=== PATIENT | female | born 1960 | race African-American/Black ===

== ENCOUNTER 2016-08-09 11:04 | Inpatient (IN) | payer MEDICARE, MEDICAID ==
[~2016-08-09] VITALS: Ht 165.1 cm; Wt 110.9 kg
[~2016-08-09 11:04] MED LIST: ASCO500 PO; FERR-89 PO; LISI-661 PO; OMEG10005 PO; TURM500C7 PO; [UNRECOGNIZED DRUG - CODE] PO
[2016-08-09] MEDS ORDERED: LORazepam 2 MG TABLET PO ONE (12:45)
[2016-08-09] MEDS ORDERED: HALOPERIDOL 5 MG TABLET PO PRN (13:00)
[2016-08-09] MEDS ORDERED: LORazepam 2 MG TABLET PO PRN (13:00)
[2016-08-09] MEDS ORDERED: ZOLPIDEM TARTRATE 10 MG TABLET PO PRN (13:00)
[2016-08-09 13:15] LABS: BASOPHILS % (AUTO) 0.3 % (0.0-2.0); EOSINOPHILS % (AUTO) 1.5 % (1.0-6.0); HEMATOCRIT 41.9 % (36-46); HEMOGLOBIN 13.3 g/dL (12.0-16.0); LYMPHOCYTES # (AUTO) 2.5 K/uL (1.0-4.8); LYMPHOCYTES % (AUTO) 20.6 % (22.0-44.0); MEAN CORPUSCULAR HEMOGLOBIN 27.1 pg (26.0-34.0); MEAN CORPUSCULAR HGB CONC 31.8 G/dL (31.0-37.0); MEAN CORPUSCULAR VOLUME 85 fL (80-100); MONOCYTES # (AUTO) 1.3 K/uL (0.1-1.0); MONOCYTES % (AUTO) 10.7 % (2.0-9.0); NEUTROPHILS % (AUTO) 66.9 % (40.0-70.0); PLATELET COUNT (AUTO) 216 K/uL (150-450); RBC MORPHOLOGY COMMENT NORMAL RBC MORPH; RED BLOOD CELL COUNT(AUTO) 4.91 MIL/uL (4.00-5.20); RED CELL DISTRIBUTION WIDTH 14.4 % (11.5-14.5)
[2016-08-09 13:21] LABS: ANION GAP 9 mmol/L (8-16); CARBON DIOXIDE 28 mmol/L (22-29); CHLORIDE 100 mmol/L (98-107); GLOMERULAR FILTR. RATE CALC > 60 mL/min (>60); POTASSIUM 3.1 mmol/L (3.5-5.1); SODIUM SERUM 137 mmol/L (136-145); UREA NITROGEN, BLOOD 14 mg/dL (7-18)
[2016-08-09 13:28] LABS: ALANINE AMINOTRANSFERASE 20 U/L (12-78); ALBUMIN 3.3 g/dL (3.4-5.0); ASPARTATE AMINOTRANSFERASE 19 U/L (15-37); BILIRUBIN,TOTAL 0.3 mg/dL (0.1-1.0); TOTAL PROTEIN, SERUM 7.5 g/dL (6.4-8.2)
[2016-08-09] MEDS ORDERED: ALBUTEROL SULFATE 2.5 MG/0.5 ML NEB SOLUTION NEB ONE (14:45)
[2016-08-09] MEDS ORDERED: 0.9% SODIUM CHLORIDE 5 ML NEB SOLUTION NEB ONE (15:04)
[2016-08-09] MEDS ORDERED: ALBUTEROL SULFATE 2.5 MG/0.5 ML NEB SOLUTION NEB PRN (17:30)
[2016-08-09] MEDS ORDERED: POTASSIUM CHLORIDE 20 MEQ ER TABLET PO ONE (17:30)
[2016-08-09 17:39] VITALS: BP 152/99
[2016-08-09] MEDS ORDERED: ACETAMINOPHEN 325 MG TABLET PO PRN (18:15)
[2016-08-09] MEDS ORDERED: IBUPROFEN 400 MG TABLET PO PRN (18:15)
[2016-08-09] MEDS: GuaiFENesin/D-METHORPHAN/PHENYLEPH 5 ML LIQUID ORAL.SYG PO PRN (18:41)
[2016-08-10 03:00] VITALS: BP 138/92
[2016-08-10] MEDS: GuaiFENesin/D-METHORPHAN/PHENYLEPH 5 ML LIQUID ORAL.SYG PO PRN (04:27)
[2016-08-10] MEDS: PANTOPRAZOLE SODIUM 40 MG DR TABLET PO SCH (08:43)
[2016-08-10] MEDS: NICOTINE 7 MG/24 HOUR PATCH TD SCH (08:43)
[2016-08-10] MEDS: LISINOPRIL 10 MG TABLET PO SCH (08:43)
[2016-08-10 09:30] VITALS: BP 156/98
[2016-08-10] MEDS ORDERED: 0.9% SODIUM CHLORIDE 5 ML NEB SOLUTION NEB ONE (11:43)
[2016-08-10] MEDS ORDERED: OxyCODONE HCL/ACETAMINOPHEN 5-325 MG TABLET PO PRN (13:15)
[2016-08-10] MEDS: ESCITALOPRAM OXALATE 10 MG TABLET PO SCH (13:18)
[2016-08-10] MEDS: BENZOCAINE/MENTHOL LOZENGE [8 LOZENGES/PACKET] PO PRN (13:48)
[2016-08-10] MEDS: QUEtiapine FUMARATE 25 MG TABLET PO SCH (16:12)
[2016-08-10 16:55] VITALS: BP 123/76
[2016-08-10] MEDS ORDERED: IBUPROFEN 400 MG TABLET PO PRN (17:15)
[2016-08-10] MEDS ORDERED: ACETAMINOPHEN 325 MG TABLET PO PRN (17:15)
[2016-08-11] MEDS: FERROUS SULFATE 325 MG EC TABLET PO SCH (06:58)
[2016-08-11] MEDS: BENZOCAINE/MENTHOL LOZENGE [8 LOZENGES/PACKET] PO PRN (07:00)
[2016-08-11 07:16] LABS: CHOL/HDL RATIO 2.4 (3.9-5.7); THYROID STIMULATING HORMONE 0.68 uIU/mL (0.36-3.74)
[2016-08-11 07:48] LABS: HEMOGLOBIN A1C 6.1 % (4.5-6.2)
[2016-08-11] MEDS: NICOTINE 7 MG/24 HOUR PATCH TD SCH (08:12)
[2016-08-11] MEDS: FISH OIL/OMEGA-3 FATTY ACIDS 500 MG CAPSULE PO SCH (08:12)
[2016-08-11] MEDS: ESCITALOPRAM OXALATE 10 MG TABLET PO SCH (08:13)
[2016-08-11] MEDS: LISINOPRIL 10 MG TABLET PO SCH (08:13)
[2016-08-11] MEDS: QUEtiapine FUMARATE 25 MG TABLET PO SCH ×2 (08:13→20:55)
[2016-08-11] MEDS: ASCORBIC ACID 500 MG TABLET PO SCH (08:13)
[2016-08-11] MEDS: GuaiFENesin/D-METHORPHAN/PHENYLEPH 5 ML LIQUID ORAL.SYG PO PRN (08:14)
[2016-08-11] MEDS: PANTOPRAZOLE SODIUM 40 MG DR TABLET PO SCH (08:15)
[2016-08-11 09:00] VITALS: BP 160/103
[2016-08-11] MEDS ORDERED: [UNRECOGNIZED DRUG - OTHER] PO SCH ×2 (09:00)
[2016-08-11] MEDS ORDERED: LISINOPRIL 10 MG TABLET PO SCH (09:00)
[2016-08-11 17:00] VITALS: BP 136/88
[2016-08-12 06:13] VITALS: BP 141/79
[2016-08-12] MEDS: FERROUS SULFATE 325 MG EC TABLET PO SCH (06:19)
[2016-08-12 08:30] VITALS: BP 153/97
[2016-08-12] MEDS: QUEtiapine FUMARATE 25 MG TABLET PO SCH ×2 (08:59→16:14)
[2016-08-12] MEDS: PANTOPRAZOLE SODIUM 40 MG DR TABLET PO SCH (08:59)
[2016-08-12] MEDS: ASCORBIC ACID 500 MG TABLET PO SCH (08:59)
[2016-08-12] MEDS: ESCITALOPRAM OXALATE 10 MG TABLET PO SCH (08:59)
[2016-08-12] MEDS: LISINOPRIL 10 MG TABLET PO SCH (08:59)
[2016-08-12] MEDS: FISH OIL/OMEGA-3 FATTY ACIDS 500 MG CAPSULE PO SCH (08:59)
[2016-08-12] MEDS: NICOTINE 7 MG/24 HOUR PATCH TD SCH (09:01)
[2016-08-12 09:02] LABS: GLUCOSE, URINE (UA) NEGATIVE (NEGATIVE); KETONES,URINE NEGATIVE (NEGATIVE); LEUKOCYTE ESTERASE ,URINE SMALL (NEGATIVE); OCCULT BLOOD,URINE NEGATIVE (NEGATIVE); PROTEIN,URINE NEGATIVE (NEGATIVE)
[2016-08-12 11:09] LABS: ADD UA MICROSCOPIC YES; APPEARANCE,URINE SLIGHTLY CLOUDY (CLEAR); RBC,URINE None Seen /HPF (0-2); SQUAMOUS EPITHELIAL CELL,UR Few /LPF (None Seen)
[2016-08-12] MEDS: GuaiFENesin/D-METHORPHAN/PHENYLEPH 5 ML LIQUID ORAL.SYG PO PRN (16:14)
[2016-08-12 17:00] VITALS: BP 144/83
[2016-08-12] MEDS: CIPROFLOXACIN HCL 0.3% 2.5 ML OPHTHALMIC SOLUTION OU SCH (21:33)
[2016-08-13] MEDS: ALBUTEROL SULFATE HFA 90 MCG/PUFF 8 GM INHALER IH PRN (01:54)
[2016-08-13] MEDS ORDERED: 0.9% SODIUM CHLORIDE 5 ML NEB SOLUTION NEB ONE (02:04)
[2016-08-13] MEDS: FERROUS SULFATE 325 MG EC TABLET PO SCH (07:24)
[2016-08-13] MEDS: ESCITALOPRAM OXALATE 10 MG TABLET PO SCH (07:58)
[2016-08-13] MEDS: PANTOPRAZOLE SODIUM 40 MG DR TABLET PO SCH (07:58)
[2016-08-13] MEDS: QUEtiapine FUMARATE 25 MG TABLET PO SCH ×2 (07:58→17:09)
[2016-08-13] MEDS: NICOTINE 7 MG/24 HOUR PATCH TD SCH (07:58)
[2016-08-13] MEDS: FISH OIL/OMEGA-3 FATTY ACIDS 500 MG CAPSULE PO SCH (07:58)
[2016-08-13] MEDS: ASCORBIC ACID 500 MG TABLET PO SCH (07:58)
[2016-08-13] MEDS: LISINOPRIL 10 MG TABLET PO SCH (07:58)
[2016-08-13] MEDS: CIPROFLOXACIN HCL 0.3% 2.5 ML OPHTHALMIC SOLUTION OU SCH ×2 (07:59→20:16)
[2016-08-13] MEDS: GuaiFENesin/D-METHORPHAN/PHENYLEPH 5 ML LIQUID ORAL.SYG PO PRN (08:04)
[2016-08-13 08:30] VITALS: BP 158/88
[2016-08-13] MEDS: AmLODIPine BESYLATE 5 MG TABLET PO SCH (16:15)
[2016-08-13 20:50] VITALS: BP 112/71
[2016-08-14] MEDS: ALBUTEROL SULFATE HFA 90 MCG/PUFF 8 GM INHALER IH PRN (02:18)
[2016-08-14] MEDS: FERROUS SULFATE 325 MG EC TABLET PO SCH ×2 (07:01→07:05)
[2016-08-14] MEDS: ASCORBIC ACID 500 MG TABLET PO SCH (08:56)
[2016-08-14] MEDS: PANTOPRAZOLE SODIUM 40 MG DR TABLET PO SCH (08:56)
[2016-08-14] MEDS: AmLODIPine BESYLATE 5 MG TABLET PO SCH (08:56)
[2016-08-14] MEDS: FISH OIL/OMEGA-3 FATTY ACIDS 500 MG CAPSULE PO SCH (08:56)
[2016-08-14] MEDS: QUEtiapine FUMARATE 25 MG TABLET PO SCH (08:56)
[2016-08-14] MEDS: ESCITALOPRAM OXALATE 10 MG TABLET PO SCH (08:56)
[2016-08-14] MEDS: LISINOPRIL 10 MG TABLET PO SCH (08:56)
[2016-08-14] MEDS: NICOTINE 7 MG/24 HOUR PATCH TD SCH (08:57)
[2016-08-14] MEDS: CIPROFLOXACIN HCL 0.3% 2.5 ML OPHTHALMIC SOLUTION OU SCH (08:57)
[2016-08-14 09:24] VITALS: BP 146/68
[2016-08-14] MEDS ORDERED: AMLO-511 PO (11:12)
[2016-08-14] MEDS ORDERED: CILO2.5OS OU (11:14)
[2016-08-14] MEDS ORDERED: ESCI10TA PO (11:14)
[2016-08-14] MEDS ORDERED: OMEG300C3 PO (11:15)
[2016-08-14] MEDS ORDERED: QUET25TA PO (11:16)
[2016-08-14] MEDS ORDERED: PANT40TA25 PO (11:16)
== END 2016-08-14 13:00 | disposition home or self-care (01) | DRG 885 ==
LOC: EMS 11:06 → 3EX 13:40
PROVIDERS: ADMIT Psychiatry & Neurology Child & Adolescent Psychiatry; ATTEND Psychiatry & Neurology Child & Adolescent Psychiatry
DX: F33.2 Major depressive disorder, recurrent severe without psychotic features (principal); R45.851 Suicidal ideations; N39.0 Urinary tract infection, site not specified; M19.90 Unspecified osteoarthritis, unspecified site; J45.909 Unspecified asthma, uncomplicated; D64.9 Anemia, unspecified; E87.6 Hypokalemia; I10 Essential (primary) hypertension; F17.210 Nicotine dependence, cigarettes, uncomplicated; D25.9 Leiomyoma of uterus, unspecified; F41.9 Anxiety disorder, unspecified; F15.90 Other stimulant use, unspecified, uncomplicated; F12.90 Cannabis use, unspecified, uncomplicated; Z79.899 Other long term (current) drug therapy; Z88.1 Allergy status to other antibiotic agents
CPT/HCPCS: 80307; 83036; 84132; 84443; 94640; 99285; G0480; J3535

== ENCOUNTER → 2018-03-18 | Emergency (ER) | payer MEDICAID, MEDICARE, OTHER ==
[~2018-03-18] VITALS: Ht 165.1 cm; Wt 100.0 kg
[~2018-03-18] MED LIST changes: +AMLO-511 PO; +CILO2.5OS OU; +ESCI10TA PO; +PANT40TA25 PO; +QUET25TA PO; -TURM500C7 PO; -[UNRECOGNIZED DRUG - CODE] PO
[2018-03-18 21:06] VITALS: BP 144/94
== END | disposition home or self-care (01) ==
LOC: EMS 17:03
DX: J40 Bronchitis, not specified as acute or chronic (principal); I10 Essential (primary) hypertension; E11.9 Type 2 diabetes mellitus without complications; F17.210 Nicotine dependence, cigarettes, uncomplicated; F32.9 Major depressive disorder, single episode, unspecified; Z88.8 Allergy status to other drugs, medicaments and biological substances; Z79.899 Other long term (current) drug therapy
CPT/HCPCS: 93005; 99284; 99406

== ENCOUNTER 2018-11-19 21:36 | Emergency (ER) | payer OTHER ==
[~2018-11-19] VITALS: Ht 165.1 cm; Wt 113.6 kg
[~2018-11-19 21:36] MED LIST changes: -AMLO-511 PO; -CILO2.5OS OU; -ESCI10TA PO; -LISI-661 PO; -PANT40TA25 PO; -QUET25TA PO
[2018-11-19 22:24] VITALS: BP 164/101
[2018-11-19] MEDS ORDERED: ACETAMINOPHEN 500 MG TABLET PO ONE (22:30)
[2018-11-22] MEDS ORDERED: LISI-661 PO (17:18)
== END 2018-11-19 22:34 | disposition home or self-care (01) ==
LOC: EMS 21:39
DX: J01.90 Acute sinusitis, unspecified (principal); E66.9 Obesity, unspecified; J45.909 Unspecified asthma, uncomplicated; I10 Essential (primary) hypertension; F32.9 Major depressive disorder, single episode, unspecified; F17.210 Nicotine dependence, cigarettes, uncomplicated; Z68.41 Body mass index [BMI] 40.0-44.9, adult; Z88.1 Allergy status to other antibiotic agents

== ENCOUNTER 2019-02-06 13:25 | Emergency (ER) | payer OTHER ==
[~2019-02-06] VITALS: Ht 165.1 cm; Wt 100.0 kg
[~2019-02-06 13:25] MED LIST changes: +AMLO5TAB9 PO; -ASCO500 PO; +ASPI-1419 PO; -FERR-89 PO; -OMEG10005 PO
[2019-02-06 15:40] LABS: GLUCOSE,POINT OF CARE 90 MG/DL (70-110)
[2019-02-06 17:39] VITALS: BP 142/88
== END 2019-02-06 17:45 | disposition home or self-care (01) ==
LOC: EMS 13:27
DX: L03.115 Cellulitis of right lower limb (principal); M71.21 Synovial cyst of popliteal space [Baker], right knee; J45.909 Unspecified asthma, uncomplicated; F32.9 Major depressive disorder, single episode, unspecified; I10 Essential (primary) hypertension; F17.210 Nicotine dependence, cigarettes, uncomplicated; Z88.1 Allergy status to other antibiotic agents; Z79.82 Long term (current) use of aspirin
CPT/HCPCS: 93971

== ENCOUNTER 2019-10-23 20:19 | Inpatient (IN) | payer OTHER ==
[~2019-10-23] VITALS: Ht 165.1 cm; Wt 124.0 kg
[~2019-10-23 20:19] MED LIST changes: -ASPI-1419 PO; +ASPI-1522 PO
[2019-10-23 21:08] LABS: BASOPHILS % (AUTO) 0.3 % (0.0-2.0); EOSINOPHILS % (AUTO) 2.1 % (1.0-6.0); HEMATOCRIT 44.6 % (36-46); HEMOGLOBIN 14.4 g/dL (12.0-16.0); LYMPHOCYTES # (AUTO) 1.8 K/uL (1.0-4.8); MEAN CORPUSCULAR HEMOGLOBIN 27.3 pg (26.0-34.0); MEAN CORPUSCULAR HGB CONC 32.3 G/dL (31.0-37.0); MEAN CORPUSCULAR VOLUME 84 fL (80-100); MONOCYTES # (AUTO) 0.9 K/uL (0.1-1.0); NEUTROPHILS # (AUTO) 6.2 K/uL (1.8-7.7); NEUTROPHILS % (AUTO) 67.6 % (40.0-70.0); PLATELET COUNT (AUTO) 224 K/uL (150-450); RED BLOOD CELL COUNT(AUTO) 5.29 MIL/uL (4.00-5.20); RED CELL DISTRIBUTION WIDTH 14.4 % (11.5-14.5)
[2019-10-23 21:42] LABS: APPEARANCE,URINE CLOUDY (CLEAR); BILIRUBIN,URINE NEGATIVE (NEGATIVE); GLUCOSE, URINE (UA) NEGATIVE (NEGATIVE); KETONES,URINE NEGATIVE (NEGATIVE); LEUKOCYTE ESTERASE ,URINE TRACE (NEGATIVE); NITRATE,URINE NEGATIVE (NEGATIVE); OCCULT BLOOD,URINE NEGATIVE (NEGATIVE); PROTEIN,URINE NEGATIVE (NEGATIVE)
[2019-10-23 21:44] LABS: ANION GAP 8 mmol/L (8-16); CALCIUM, TOTAL 9.4 mg/dL (8.8-10.5); CARBON DIOXIDE 30 mmol/L (22-29); CHLORIDE 103 mmol/L (98-107); GLOMERULAR FILTR. RATE CALC > 60 mL/min (>60); GLUCOSE,RANDOM 107 mg/dL (70-110); POTASSIUM 3.3 mmol/L (3.5-5.1); SODIUM SERUM 141 mmol/L (136-145); UREA NITROGEN, BLOOD 11 mg/dL (7-18)
[2019-10-23 21:49] LABS: ALANINE AMINOTRANSFERASE 20 U/L (12-78); ALBUMIN 3.7 g/dL (3.4-5.0); ALKALINE PHOSPHATASE 99 U/L (46-116); ASPARTATE AMINOTRANSFERASE 13 U/L (15-37); BILIRUBIN,TOTAL 0.5 mg/dL (0.1-1.0); LIPASE 118 U/L (73-393); TOTAL PROTEIN, SERUM 7.8 g/dL (6.4-8.2)
[2019-10-23 21:52] LABS: BACTERIA,URINE None Seen /HPF (None Seen); RBC,URINE 0-2 /HPF (0-2); SQUAMOUS EPITHELIAL CELL,UR Few /LPF (None Seen); WBC,URINE 0-2 /HPF (0-5)
[2019-10-23 21:53] LABS: AMORPHOUS SEDIMENT,UR Many /LPF (None Seen)
[2019-10-23] MEDS ORDERED: ONDANSETRON HCL 4 MG/2 ML VIAL IVP ONE (22:30)
[2019-10-23] MEDS ORDERED: SODIUM CHLORIDE 0.9% 1,000 ML IV ONE (22:30)
[2019-10-23] MEDS ORDERED: HYDROmorphone 2 MG/ML SYRINGE IVP ONE (22:30)
[2019-10-23] MEDS ORDERED: BARIUM SULFATE 0.1% SUSPENSION 450 ML BOTTLE PO ONE (22:30)
[2019-10-23] MEDS ORDERED: SODIUM CHLORIDE 0.9% 100 ML ONE (22:31)
[2019-10-23] MEDS ORDERED: IOVERSOL 350 MG/ML 150 ML VIAL ONE (22:31)
[2019-10-23] MEDS ORDERED: 0.9% SODIUM CHLORIDE 10 ML SYRINGE IVP PRN (23:45)
[2019-10-23] MEDS ORDERED: BISACODYL 10 MG RECTAL RECTAL SUPPOSITORY PR PRN (23:45)
[2019-10-23] MEDS ORDERED: MAGNESIUM HYDROXIDE SUSPENSION 30 ML UDCUP PO PRN (23:45)
[2019-10-23] MEDS ORDERED: ACETAMINOPHEN 325 MG TABLET PO PRN ×2 (23:45)
[2019-10-23] MEDS ORDERED: ONDANSETRON HCL 4 MG/2 ML VIAL IVP PRN ×2 (23:45)
[2019-10-23] MEDS ORDERED: ZOLPIDEM TARTRATE 5 MG TABLET PO PRN (23:45)
[2019-10-23] MEDS ORDERED: MORPHINE SULFATE 2 MG/ML SYRINGE IVP PRN (23:45)
[2019-10-23] MEDS ORDERED: HYDROCODONE/ACETAMINOPHEN 5-325 MG TABLET PO PRN (23:45)
[2019-10-24] MEDS: HEPARIN SODIUM,PORCINE 5,000 UNITS/ML VIAL SQ SCH ×4 (00:20→23:20)
[2019-10-24] MEDS: MetroNIDAZOLE 500 MG/NACL 100 ML IV SCH ×4 (00:20→23:21)
[2019-10-24] MEDS ORDERED: HYDROmorphone 2 MG/ML SYRINGE IVP PRN (01:00)
[2019-10-24] MEDS: CIPROFLOXACIN 400 MG/D5% WATER 200 ML IV SCH ×2 (01:38→12:06)
[2019-10-24 02:48] VITALS: BP 135/77
[2019-10-24] MEDS ORDERED: -PHARMACY VACCINE NOTE- MISC ONE (04:15)
[2019-10-24] MEDS ORDERED: INFLUENZA VIRUS VACCINE QVS 2019-20 (3YR+)/PF 60 MCG/0.5 ML SYRINGE IM ONE (04:15)
[2019-10-24 07:24] LABS: ALANINE AMINOTRANSFERASE 20 U/L (12-78); ALBUMIN 3.3 g/dL (3.4-5.0); ALKALINE PHOSPHATASE 92 U/L (46-116); ANION GAP 8 mmol/L (8-16); ASPARTATE AMINOTRANSFERASE 12 U/L (15-37); BILIRUBIN,TOTAL 0.6 mg/dL (0.1-1.0); CALCIUM, TOTAL 8.7 mg/dL (8.8-10.5); CARBON DIOXIDE 28 mmol/L (22-29); CHLORIDE 102 mmol/L (98-107); CREATININE 0.85 mg/dL (0.60-1.30); GLOMERULAR FILTR. RATE CALC > 60 mL/min (>60); GLUCOSE,RANDOM 99 mg/dL (70-110); POTASSIUM 3.3 mmol/L (3.5-5.1); SODIUM SERUM 138 mmol/L (136-145); TOTAL PROTEIN, SERUM 7.3 g/dL (6.4-8.2); UREA NITROGEN, BLOOD 9 mg/dL (7-18)
[2019-10-24 07:40] VITALS: BP 130/77
[2019-10-24] MEDS: AmLODIPine BESYLATE 5 MG TABLET PO SCH (08:35)
[2019-10-24] MEDS: ASPIRIN 81 MG EC TABLET PO SCH (08:35)
[2019-10-24] MEDS: DOCUSATE SODIUM 100 MG CAPSULE PO SCH ×2 (08:35→20:23)
[2019-10-24] MEDS: PANTOPRAZOLE SODIUM 40 MG DR TABLET PO SCH (08:36)
[2019-10-24 11:32] VITALS: BP 148/93
[2019-10-24] MEDS ORDERED: POTASSIUM CHLORIDE 20 MEQ ER TABLET PO PRN (12:00)
[2019-10-24] MEDS ORDERED: POTASSIUM CHL 10 MEQ/WATER 50 ML IV PRN (12:00)
[2019-10-24] MEDS: ALBUTEROL SULFATE HFA 90 MCG/PUFF 8 GM INHALER IH PRN ×2 (15:58→23:21)
[2019-10-24 16:01] VITALS: BP 144/88
[2019-10-24 20:03] VITALS: BP 133/74
[2019-10-24 23:47] VITALS: BP 142/79
[2019-10-25] MEDS: CIPROFLOXACIN 400 MG/D5% WATER 200 ML IV SCH ×2 (01:01→12:14)
[2019-10-25 05:14] VITALS: BP 148/85
[2019-10-25 07:33] VITALS: BP 140/78
[2019-10-25] MEDS: HEPARIN SODIUM,PORCINE 5,000 UNITS/ML VIAL SQ SCH (08:01)
[2019-10-25] MEDS: ASPIRIN 81 MG EC TABLET PO SCH (08:01)
[2019-10-25] MEDS: DOCUSATE SODIUM 100 MG CAPSULE PO SCH (08:01)
[2019-10-25] MEDS: PANTOPRAZOLE SODIUM 40 MG DR TABLET PO SCH (08:01)
[2019-10-25] MEDS: AmLODIPine BESYLATE 5 MG TABLET PO SCH (08:01)
[2019-10-25] MEDS: MetroNIDAZOLE 500 MG/NACL 100 ML IV SCH (08:01)
[2019-10-25] MEDS ORDERED: CIPR-279 PO (11:00)
[2019-10-25] MEDS ORDERED: METR500 PO (11:00)
[2019-10-25 11:43] VITALS: BP 136/92
== END 2019-10-25 14:45 | disposition home or self-care (01) | DRG 244 ==
LOC: EMS 20:20 → 6N 23:37
PROVIDERS: ADMIT Internal Medicine; ATTEND Internal Medicine
DX: K57.32 Diverticulitis of large intestine without perforation or abscess without bleeding (principal); I95.9 Hypotension, unspecified; E87.6 Hypokalemia; I10 Essential (primary) hypertension; F32.9 Major depressive disorder, single episode, unspecified; D25.9 Leiomyoma of uterus, unspecified; F17.210 Nicotine dependence, cigarettes, uncomplicated; Z88.8 Allergy status to other drugs, medicaments and biological substances; Z80.0 Family history of malignant neoplasm of digestive organs; Z82.0 Family history of epilepsy and other diseases of the nervous system; Z28.21 Immunization not carried out because of patient refusal; J45.909 Unspecified asthma, uncomplicated
CPT/HCPCS: 74177; 84132; 93005; J0744; J1170; J1644; J2405; J3490; J3535; J7030; J7050

== ENCOUNTER 2019-12-17 13:25 | Inpatient (IN) | payer OTHER ==
[~2019-12-17] VITALS: Ht 167.6 cm; Wt 122.5 kg
[~2019-12-17 13:25] MED LIST changes: +AMLO-257 PO; -AMLO5TAB9 PO; +CIPR-279 PO; +METR500 PO
[2019-12-17] MEDS ORDERED: ASPIRIN 81 MG CHEWABLE TABLET PO ONE (15:45)
[2019-12-17] MEDS ORDERED: NITROGLYCERIN 2% (1 GM=INCH) PACKET TP ONE (15:45)
[2019-12-17 16:07] LABS: BASOPHILS % (AUTO) 0.4 % (0.0-2.0); EOSINOPHILS % (AUTO) 0.1 % (1.0-6.0); HEMATOCRIT 47.5 % (36-46); LYMPHOCYTES # (AUTO) 1.3 K/uL (1.0-4.8); LYMPHOCYTES % (AUTO) 19.8 % (22.0-44.0); MEAN CORPUSCULAR HEMOGLOBIN 28.4 pg (26.0-34.0); MEAN CORPUSCULAR HGB CONC 33.8 G/dL (31.0-37.0); MEAN CORPUSCULAR VOLUME 84 fL (80-100); MONOCYTES # (AUTO) 1.1 K/uL (0.1-1.0); MONOCYTES % (AUTO) 16.3 % (2.0-9.0); NEUTROPHILS # (AUTO) 4.1 K/uL (1.8-7.7); NEUTROPHILS % (AUTO) 63.4 % (40.0-70.0); PLATELET COUNT (AUTO) 175 K/uL (150-450); RED BLOOD CELL COUNT(AUTO) 5.65 MIL/uL (4.00-5.20); RED CELL DISTRIBUTION WIDTH 14.5 % (11.5-14.5)
[2019-12-17 16:20] LABS: ANION GAP 16 mmol/L (8-16); CALCIUM, TOTAL 8.9 mg/dL (8.8-10.5); CARBON DIOXIDE 20 mmol/L (22-29); CHLORIDE 102 mmol/L (98-107); CREATININE 1.04 mg/dL (0.60-1.30); GLOMERULAR FILTR. RATE CALC > 60 mL/min (>60); GLUCOSE,RANDOM 127 mg/dL (70-110); POTASSIUM 3.5 mmol/L (3.5-5.1); SODIUM SERUM 138 mmol/L (136-145); UREA NITROGEN, BLOOD 19 mg/dL (7-18)
[2019-12-17 16:44] LABS: ALANINE AMINOTRANSFERASE 23 U/L (12-78); ALBUMIN 3.5 g/dL (3.4-5.0); ALKALINE PHOSPHATASE 93 U/L (46-116); ASPARTATE AMINOTRANSFERASE 23 U/L (15-37); BILIRUBIN,TOTAL 0.5 mg/dL (0.1-1.0); CREATINE KINASE, TOTAL ONLY 199 U/L (26-192); LIPASE 125 U/L (73-393); TOTAL PROTEIN, SERUM 8.5 g/dL (6.4-8.2)
[2019-12-17] MEDS ORDERED: IOVERSOL 350 MG/ML 100 ML VIAL ONE (17:09)
[2019-12-17] MEDS ORDERED: SODIUM CHLORIDE 0.9% 100 ML ONE (17:09)
[2019-12-17 17:17] LABS: PROTHROMBIN TIME 10.4 SEC (9.4-11.6)
[2019-12-17] MEDS ORDERED: MetroNIDAZOLE 250 MG TABLET PO ONE (20:30)
[2019-12-17] MEDS ORDERED: SODIUM CHLORIDE 0.9% 1,000 ML IV ONE (21:00)
[2019-12-17 21:06] LABS: APPEARANCE,URINE CLOUDY (CLEAR); GLUCOSE, URINE (UA) NEGATIVE (NEGATIVE); KETONES,URINE TRACE mg/dL (NEGATIVE); LEUKOCYTE ESTERASE ,URINE MODERATE (NEGATIVE); NITRATE,URINE NEGATIVE (NEGATIVE); OCCULT BLOOD,URINE MODERATE (NEGATIVE); PH,URINE 5.5 (5.0-8.0); PROTEIN,URINE SEE CONFIRM (NEGATIVE)
[2019-12-17 21:10] LABS: BILIRUBIN,URINE PRELIM. POSITIVE (NEGATIVE)
[2019-12-17 21:12] LABS: SULFOSALICYLIC ACID,URINE 4+ (Negative)
[2019-12-17 21:13] LABS: BACTERIA,URINE Moderate /HPF (None Seen)
[2019-12-17 21:14] LABS: SQUAMOUS EPITHELIAL CELL,UR Moderate /LPF (None Seen)
[2019-12-17] MEDS ORDERED: 0.9% SODIUM CHLORIDE 10 ML SYRINGE IVP PRN (21:45)
[2019-12-17] MEDS ORDERED: ONDANSETRON HCL 4 MG/2 ML VIAL IVP PRN (21:45)
[2019-12-17] MEDS ORDERED: CefTRIAXone 1 GM/DEXTROSE 50 ML IV ONE (21:45)
[2019-12-17 22:06] LABS: INR 1.1 (0.9-1.1); PROTHROMBIN TIME 11.1 SEC (9.4-11.6)
[2019-12-18] VITALS (9 sets, daily range): BP systolic 118–150; BP diastolic 72–96
[2019-12-18] MEDS: ACETAMINOPHEN 500 MG TABLET PO ONE (02:22)
[2019-12-18] MEDS: ACETAMINOPHEN 325 MG TABLET PO PRN ×2 (02:24→12:09)
[2019-12-18] MEDS ORDERED: SODIUM CHLORIDE 0.9% 250 ML IV ONE (11:15)
[2019-12-18] MEDS: MetroNIDAZOLE 500 MG/NACL 100 ML IV SCH ×2 (12:10→17:32)
[2019-12-18] MEDS: DOXYCYCLINE HYCLATE 100 MG in DEXTROSE 5%-WATER 100 ML IV SCH ×2 (13:14→22:48)
[2019-12-18] MEDS: CefTRIAXone 1 GM/DEXTROSE 50 ML IV SCH (21:46)
[2019-12-18] MEDS ORDERED: ACETAMINOPHEN 325 MG TABLET PO PRN (22:00)
[2019-12-19] MEDS: MetroNIDAZOLE 500 MG/NACL 100 ML IV SCH ×3 (03:21→17:39)
[2019-12-19 03:28] VITALS: BP 122/56
[2019-12-19 08:50] VITALS: BP 114/72
[2019-12-19] MEDS: DOXYCYCLINE HYCLATE 100 MG in DEXTROSE 5%-WATER 100 ML IV SCH ×2 (11:08→23:22)
[2019-12-19] MEDS ORDERED: SODIUM CHLORIDE 0.9% 250 ML IV ONE (11:13)
[2019-12-19 11:55] VITALS: BP 144/89
[2019-12-19 16:53] VITALS: BP 142/82
[2019-12-19] MEDS ORDERED: BISACODYL 10 MG RECTAL RECTAL SUPPOSITORY PR PRN (19:00)
[2019-12-19] MEDS ORDERED: ZOLPIDEM TARTRATE 5 MG TABLET PO PRN (19:00)
[2019-12-19] MEDS ORDERED: ONDANSETRON HCL 4 MG/2 ML VIAL IVP PRN (19:00)
[2019-12-19] MEDS ORDERED: MAGNESIUM HYDROXIDE SUSPENSION 30 ML UDCUP PO PRN (19:00)
[2019-12-19] MEDS ORDERED: HYDROCODONE/ACETAMINOPHEN 5-325 MG TABLET PO PRN (19:00)
[2019-12-19] MEDS ORDERED: MORPHINE SULFATE 2 MG/ML SYRINGE IVP PRN (19:00)
[2019-12-19] MEDS: DOCUSATE SODIUM 100 MG CAPSULE PO SCH (21:10)
[2019-12-19] MEDS: ACETAMINOPHEN 325 MG TABLET PO PRN (21:10)
[2019-12-19] MEDS: CefTRIAXone 1 GM/DEXTROSE 50 ML IV SCH (21:11)
[2019-12-19 21:29] LABS: BASOPHILS % (AUTO) 0.3 % (0.0-2.0); EOSINOPHILS % (AUTO) 0 % (1.0-6.0); HEMATOCRIT 42.4 % (36-46); HEMOGLOBIN 14.2 g/dL (12.0-16.0); LYMPHOCYTES # (AUTO) 1.1 K/uL (1.0-4.8); LYMPHOCYTES % (AUTO) 22.3 % (22.0-44.0); MEAN CORPUSCULAR HEMOGLOBIN 28.2 pg (26.0-34.0); MEAN CORPUSCULAR HGB CONC 33.5 G/dL (31.0-37.0); MEAN CORPUSCULAR VOLUME 84 fL (80-100); MONOCYTES # (AUTO) 0.5 K/uL (0.1-1.0); MONOCYTES % (AUTO) 9.2 % (2.0-9.0); NEUTROPHILS # (AUTO) 3.4 K/uL (1.8-7.7); NEUTROPHILS % (AUTO) 68.2 % (40.0-70.0); PLATELET COUNT (AUTO) 142 K/uL (150-450); RED BLOOD CELL COUNT(AUTO) 5.05 MIL/uL (4.00-5.20); RED CELL DISTRIBUTION WIDTH 13.8 % (11.5-14.5)
[2019-12-19 21:37] LABS: ANION GAP 7 mmol/L (8-16); CALCIUM, TOTAL 8.3 mg/dL (8.8-10.5); CARBON DIOXIDE 28 mmol/L (22-29); CHLORIDE 103 mmol/L (98-107); CREATININE 0.99 mg/dL (0.60-1.30); GLOMERULAR FILTR. RATE CALC > 60 mL/min (>60); GLUCOSE,RANDOM 132 mg/dL (70-110); POTASSIUM 3.2 mmol/L (3.5-5.1); SODIUM SERUM 138 mmol/L (136-145); UREA NITROGEN, BLOOD 12 mg/dL (7-18)
[2019-12-19 21:43] LABS: ALANINE AMINOTRANSFERASE 14 U/L (12-78); ALBUMIN 2.6 g/dL (3.4-5.0); ALKALINE PHOSPHATASE 66 U/L (46-116); ASPARTATE AMINOTRANSFERASE 18 U/L (15-37); BILIRUBIN,TOTAL 0.4 mg/dL (0.1-1.0); TOTAL PROTEIN, SERUM 6.9 g/dL (6.4-8.2)
[2019-12-19] MEDS ORDERED: POTASSIUM CHLORIDE 20 MEQ ER TABLET PO ONE (22:30)
[2019-12-19] MEDS: HEPARIN SODIUM,PORCINE 5,000 UNITS/ML VIAL SQ SCH (23:22)
[2019-12-20] VITALS (7 sets, daily range): BP systolic 109–148; BP diastolic 60–98
[2019-12-20] MEDS: MetroNIDAZOLE 500 MG/NACL 100 ML IV SCH ×3 (02:14→17:40)
[2019-12-20 08:58] LABS: BASOPHILS % (AUTO) 0.3 % (0.0-2.0); EOSINOPHILS % (AUTO) 0.1 % (1.0-6.0); HEMATOCRIT 43.6 % (36-46); HEMOGLOBIN 14.1 g/dL (12.0-16.0); LYMPHOCYTES % (AUTO) 18.7 % (22.0-44.0); MEAN CORPUSCULAR HEMOGLOBIN 27.2 pg (26.0-34.0); MEAN CORPUSCULAR HGB CONC 32.4 G/dL (31.0-37.0); MEAN CORPUSCULAR VOLUME 84 fL (80-100); MONOCYTES # (AUTO) 0.4 K/uL (0.1-1.0); NEUTROPHILS # (AUTO) 4.1 K/uL (1.8-7.7); NEUTROPHILS % (AUTO) 72.9 % (40.0-70.0); PLATELET COUNT (AUTO) 141 K/uL (150-450); RED BLOOD CELL COUNT(AUTO) 5.19 MIL/uL (4.00-5.20); RED CELL DISTRIBUTION WIDTH 14.2 % (11.5-14.5)
[2019-12-20] MEDS: DOCUSATE SODIUM 100 MG CAPSULE PO SCH ×2 (09:00→20:28)
[2019-12-20 09:32] LABS: ALANINE AMINOTRANSFERASE 15 U/L (12-78); ALBUMIN 2.6 g/dL (3.4-5.0); ALKALINE PHOSPHATASE 62 U/L (46-116); ANION GAP 8 mmol/L (8-16); ASPARTATE AMINOTRANSFERASE 21 U/L (15-37); BILIRUBIN,TOTAL 0.4 mg/dL (0.1-1.0); CALCIUM, TOTAL 8.3 mg/dL (8.8-10.5); CARBON DIOXIDE 26 mmol/L (22-29); CHLORIDE 105 mmol/L (98-107); CREATININE 0.96 mg/dL (0.60-1.30); GLOMERULAR FILTR. RATE CALC > 60 mL/min (>60); GLUCOSE,RANDOM 155 mg/dL (70-110); POTASSIUM 3.5 mmol/L (3.5-5.1); SODIUM SERUM 139 mmol/L (136-145); TOTAL PROTEIN, SERUM 6.8 g/dL (6.4-8.2); UREA NITROGEN, BLOOD 10 mg/dL (7-18)
[2019-12-20] MEDS: HEPARIN SODIUM,PORCINE 5,000 UNITS/ML VIAL SQ SCH ×3 (10:00→23:40)
[2019-12-20] MEDS: DOXYCYCLINE HYCLATE 100 MG in DEXTROSE 5%-WATER 100 ML IV SCH ×2 (11:23→23:41)
[2019-12-20] MEDS: ACETAMINOPHEN 325 MG TABLET PO PRN (20:24)
[2019-12-20] MEDS ORDERED: SODIUM CHLORIDE 0.9% 250 ML IV ONE (20:39)
[2019-12-20] MEDS: CefTRIAXone 1 GM/DEXTROSE 50 ML IV SCH (21:07)
[2019-12-21] MEDS: MetroNIDAZOLE 500 MG/NACL 100 ML IV SCH ×3 (01:26→17:00)
[2019-12-21 05:23] VITALS: BP 144/78
[2019-12-21 07:48] VITALS: BP 125/72
[2019-12-21 08:31] LABS: BASOPHILS % (AUTO) 0.5 % (0.0-2.0); EOSINOPHILS % (AUTO) 0.1 % (1.0-6.0); HEMATOCRIT 42.5 % (36-46); HEMOGLOBIN 14.1 g/dL (12.0-16.0); LYMPHOCYTES # (AUTO) 1.1 K/uL (1.0-4.8); LYMPHOCYTES % (AUTO) 16.2 % (22.0-44.0); MEAN CORPUSCULAR HEMOGLOBIN 28.1 pg (26.0-34.0); MEAN CORPUSCULAR HGB CONC 33.3 G/dL (31.0-37.0); MEAN CORPUSCULAR VOLUME 84 fL (80-100); MONOCYTES # (AUTO) 0.6 K/uL (0.1-1.0); MONOCYTES % (AUTO) 8.4 % (2.0-9.0); NEUTROPHILS # (AUTO) 5.1 K/uL (1.8-7.7); NEUTROPHILS % (AUTO) 74.8 % (40.0-70.0); PLATELET COUNT (AUTO) 151 K/uL (150-450); RED BLOOD CELL COUNT(AUTO) 5.04 MIL/uL (4.00-5.20); RED CELL DISTRIBUTION WIDTH 13.8 % (11.5-14.5)
[2019-12-21] MEDS: DOCUSATE SODIUM 100 MG CAPSULE PO SCH ×2 (08:40→21:51)
[2019-12-21] MEDS: HEPARIN SODIUM,PORCINE 5,000 UNITS/ML VIAL SQ SCH ×3 (08:40→23:19)
[2019-12-21 09:19] LABS: ALANINE AMINOTRANSFERASE 13 U/L (12-78); ALBUMIN 2.6 g/dL (3.4-5.0); ALKALINE PHOSPHATASE 66 U/L (46-116); ANION GAP 9 mmol/L (8-16); ASPARTATE AMINOTRANSFERASE 20 U/L (15-37); BILIRUBIN,TOTAL 0.6 mg/dL (0.1-1.0); CALCIUM, TOTAL 8.4 mg/dL (8.8-10.5); CARBON DIOXIDE 26 mmol/L (22-29); CHLORIDE 100 mmol/L (98-107); CREATININE 0.91 mg/dL (0.60-1.30); GLOMERULAR FILTR. RATE CALC > 60 mL/min (>60); GLUCOSE,RANDOM 97 mg/dL (70-110); POTASSIUM 3.6 mmol/L (3.5-5.1); SODIUM SERUM 135 mmol/L (136-145); TOTAL PROTEIN, SERUM 7.1 g/dL (6.4-8.2); UREA NITROGEN, BLOOD 10 mg/dL (7-18)
[2019-12-21 11:05] VITALS: BP 126/75
[2019-12-21] MEDS: DOXYCYCLINE HYCLATE 100 MG in DEXTROSE 5%-WATER 100 ML IV SCH ×2 (11:24→23:19)
[2019-12-21 15:11] VITALS: BP 108/59
[2019-12-21] MEDS: ACETAMINOPHEN 325 MG TABLET PO PRN ×2 (16:19→21:51)
[2019-12-21 19:21] VITALS: BP 129/74
[2019-12-21] MEDS: CefTRIAXone 1 GM/DEXTROSE 50 ML IV SCH (21:50)
[2019-12-21] MEDS ORDERED: SODIUM CHLORIDE 0.9% 250 ML IV ONE (23:10)
[2019-12-22] MEDS: MetroNIDAZOLE 500 MG/NACL 100 ML IV SCH ×3 (02:00→17:19)
[2019-12-22 03:49] VITALS: BP 142/84
[2019-12-22 07:26] LABS: BASOPHILS % (AUTO) 0.3 % (0.0-2.0); EOSINOPHILS % (AUTO) 0 % (1.0-6.0); HEMATOCRIT 44.3 % (36-46); HEMOGLOBIN 14.3 g/dL (12.0-16.0); LYMPHOCYTES % (AUTO) 9.5 % (22.0-44.0); MEAN CORPUSCULAR HEMOGLOBIN 27.3 pg (26.0-34.0); MEAN CORPUSCULAR HGB CONC 32.3 G/dL (31.0-37.0); MEAN CORPUSCULAR VOLUME 84 fL (80-100); MONOCYTES # (AUTO) 0.9 K/uL (0.1-1.0); MONOCYTES % (AUTO) 8.1 % (2.0-9.0); NEUTROPHILS # (AUTO) 8.7 K/uL (1.8-7.7); NEUTROPHILS % (AUTO) 82.1 % (40.0-70.0); PLATELET COUNT (AUTO) 169 K/uL (150-450); RED BLOOD CELL COUNT(AUTO) 5.25 MIL/uL (4.00-5.20)
[2019-12-22 07:36] VITALS: BP 122/87
[2019-12-22 07:40] LABS: ALANINE AMINOTRANSFERASE 11 U/L (12-78); ALBUMIN 2.5 g/dL (3.4-5.0); ALKALINE PHOSPHATASE 62 U/L (46-116); ANION GAP 9 mmol/L (8-16); ASPARTATE AMINOTRANSFERASE 21 U/L (15-37); BILIRUBIN,TOTAL 0.5 mg/dL (0.1-1.0); CALCIUM, TOTAL 8.5 mg/dL (8.8-10.5); CARBON DIOXIDE 28 mmol/L (22-29); CHLORIDE 102 mmol/L (98-107); CREATININE 0.81 mg/dL (0.60-1.30); GLOMERULAR FILTR. RATE CALC > 60 mL/min (>60); GLUCOSE,RANDOM 102 mg/dL (70-110); POTASSIUM 3.5 mmol/L (3.5-5.1); SODIUM SERUM 139 mmol/L (136-145); TOTAL PROTEIN, SERUM 7.5 g/dL (6.4-8.2); UREA NITROGEN, BLOOD 11 mg/dL (7-18)
[2019-12-22] MEDS: DOCUSATE SODIUM 100 MG CAPSULE PO SCH ×2 (07:57→20:48)
[2019-12-22] MEDS: HEPARIN SODIUM,PORCINE 5,000 UNITS/ML VIAL SQ SCH ×2 (07:57→17:19)
[2019-12-22] MEDS: ACETAMINOPHEN 325 MG TABLET PO PRN ×3 (07:58→22:53)
[2019-12-22 13:00] VITALS: BP 146/92
[2019-12-22] MEDS: DOXYCYCLINE HYCLATE 100 MG in DEXTROSE 5%-WATER 100 ML IV SCH (13:00)
[2019-12-22 14:07] LABS: BASOPHILS % (AUTO) 0.3 % (0.0-2.0); EOSINOPHILS % (AUTO) 0 % (1.0-6.0); HEMATOCRIT 42.6 % (36-46); HEMOGLOBIN 14.2 g/dL (12.0-16.0); LYMPHOCYTES # (AUTO) 0.9 K/uL (1.0-4.8); MEAN CORPUSCULAR HEMOGLOBIN 27.9 pg (26.0-34.0); MEAN CORPUSCULAR HGB CONC 33.3 G/dL (31.0-37.0); MEAN CORPUSCULAR VOLUME 84 fL (80-100); MONOCYTES # (AUTO) 0.9 K/uL (0.1-1.0); MONOCYTES % (AUTO) 7.5 % (2.0-9.0); NEUTROPHILS % (AUTO) 84.2 % (40.0-70.0); PLATELET COUNT (AUTO) 169 K/uL (150-450); RED BLOOD CELL COUNT(AUTO) 5.07 MIL/uL (4.00-5.20)
[2019-12-22 14:30] LABS: ALANINE AMINOTRANSFERASE 11 U/L (12-78); ALBUMIN 2.4 g/dL (3.4-5.0); ALKALINE PHOSPHATASE 65 U/L (46-116); ANION GAP 8 mmol/L (8-16); ASPARTATE AMINOTRANSFERASE 21 U/L (15-37); BILIRUBIN,TOTAL 0.5 mg/dL (0.1-1.0); C-REACTIVE PROTEIN QUANT 15.85 mg/dL (0.00-0.30); CALCIUM, TOTAL 8.7 mg/dL (8.8-10.5); CARBON DIOXIDE 25 mmol/L (22-29); CHLORIDE 100 mmol/L (98-107); CREATININE 1.07 mg/dL (0.60-1.30); GLOMERULAR FILTR. RATE CALC > 60 mL/min (>60); GLUCOSE,RANDOM 127 mg/dL (70-110); LACTATE DEHYDROGENASE 421 U/L (81-234); POTASSIUM 3.4 mmol/L (3.5-5.1); SODIUM SERUM 133 mmol/L (136-145); TOTAL PROTEIN, SERUM 7.2 g/dL (6.4-8.2); UREA NITROGEN, BLOOD 12 mg/dL (7-18)
[2019-12-22 14:58] LABS: FERRITIN 322 ng/mL (8-252)
[2019-12-22 15:28] VITALS: BP 114/55
[2019-12-22 16:36] VITALS: BP 127/89
[2019-12-22] MEDS ORDERED: REMDESIVIR **INVESTIGATIONAL** 200 MG in SODIUM CHLORIDE 0.9% 210 ML IV ONE (17:00)
[2019-12-22] MEDS ORDERED: SODIUM CHLORIDE 0.9% 250 ML IV ONE (17:40)
[2019-12-22 20:10] VITALS: BP 138/89
[2019-12-22] MEDS: CefTRIAXone 1 GM/DEXTROSE 50 ML IV SCH (20:48)
[2019-12-22 20:53] LABS: APPEARANCE,URINE CLEAR (CLEAR); BILIRUBIN,URINE NEGATIVE (NEGATIVE); GLUCOSE, URINE (UA) NEGATIVE (NEGATIVE); KETONES,URINE NEGATIVE (NEGATIVE); LEUKOCYTE ESTERASE ,URINE TRACE (NEGATIVE); NITRATE,URINE NEGATIVE (NEGATIVE); OCCULT BLOOD,URINE TRACE (NEGATIVE); PH,URINE 5.5 (5.0-8.0); PROTEIN,URINE SEE CONFIRM (NEGATIVE); UROBILINOGEN,URINE 0.2 mg/dL (<=1.0)
[2019-12-22 21:02] LABS: RBC,URINE 0-2 /HPF (0-2); SULFOSALICYLIC ACID,URINE 4+ (Negative)
[2019-12-22 21:03] LABS: BACTERIA,URINE Few /HPF (None Seen); SQUAMOUS EPITHELIAL CELL,UR Moderate /LPF (None Seen); WBC,URINE 0-2 /HPF (0-5)
[2019-12-22 21:04] LABS: RENAL EPITHELIAL CELLS,URINE Rare /LPF (None Seen)
[2019-12-23] VITALS (7 sets, daily range): BP systolic 114–149; BP diastolic 72–107
[2019-12-23] MEDS: HEPARIN SODIUM,PORCINE 5,000 UNITS/ML VIAL SQ SCH ×4 (01:13→22:21)
[2019-12-23] MEDS: MetroNIDAZOLE 500 MG/NACL 100 ML IV SCH ×3 (01:14→18:18)
[2019-12-23 07:04] LABS: BASOPHILS % (AUTO) 0.1 % (0.0-2.0); EOSINOPHILS % (AUTO) 0 % (1.0-6.0); HEMATOCRIT 40.3 % (36-46); HEMOGLOBIN 13.4 g/dL (12.0-16.0); LYMPHOCYTES # (AUTO) 1.3 K/uL (1.0-4.8); LYMPHOCYTES % (AUTO) 10.1 % (22.0-44.0); MEAN CORPUSCULAR HEMOGLOBIN 27.8 pg (26.0-34.0); MEAN CORPUSCULAR HGB CONC 33.3 G/dL (31.0-37.0); MEAN CORPUSCULAR VOLUME 84 fL (80-100); MONOCYTES # (AUTO) 1.1 K/uL (0.1-1.0); MONOCYTES % (AUTO) 8.8 % (2.0-9.0); NEUTROPHILS # (AUTO) 10.6 K/uL (1.8-7.7); PLATELET COUNT (AUTO) 180 K/uL (150-450); RED BLOOD CELL COUNT(AUTO) 4.83 MIL/uL (4.00-5.20); RED CELL DISTRIBUTION WIDTH 14.1 % (11.5-14.5)
[2019-12-23 07:51] LABS: ALANINE AMINOTRANSFERASE 10 U/L (12-78); ALBUMIN 2.2 g/dL (3.4-5.0); ALKALINE PHOSPHATASE 67 U/L (46-116); ANION GAP 8 mmol/L (8-16); ASPARTATE AMINOTRANSFERASE 23 U/L (15-37); BILIRUBIN,TOTAL 0.4 mg/dL (0.1-1.0); C-REACTIVE PROTEIN QUANT 17.63 mg/dL (0.00-0.30); CALCIUM, TOTAL 8.5 mg/dL (8.8-10.5); CARBON DIOXIDE 26 mmol/L (22-29); CHLORIDE 100 mmol/L (98-107); CREATININE 1.01 mg/dL (0.60-1.30); FERRITIN 383 ng/mL (8-252); GLOMERULAR FILTR. RATE CALC > 60 mL/min (>60); GLUCOSE,RANDOM 102 mg/dL (70-110); POTASSIUM 3.3 mmol/L (3.5-5.1); SODIUM SERUM 134 mmol/L (136-145); TOTAL PROTEIN, SERUM 6.9 g/dL (6.4-8.2); UREA NITROGEN, BLOOD 12 mg/dL (7-18)
[2019-12-23] MEDS: DOCUSATE SODIUM 100 MG CAPSULE PO SCH ×2 (09:00→09:29)
[2019-12-23 10:12] LABS: PLATELET MORPHOLOGY COMMENT GIANT PLTS PRESENT
[2019-12-23] MEDS ORDERED: POTASSIUM CHLORIDE 20 MEQ ER TABLET PO ONE (12:15)
[2019-12-23] MEDS: ACETAMINOPHEN 325 MG TABLET PO PRN (12:55)
[2019-12-23] MEDS: REMDESIVIR **INVESTIGATIONAL** 100 MG in SODIUM CHLORIDE 0.9% 230 ML IV SCH (17:11)
[2019-12-23] MEDS: CefTRIAXone 1 GM/DEXTROSE 50 ML IV SCH (22:21)
[2019-12-24] MEDS: MetroNIDAZOLE 500 MG/NACL 100 ML IV SCH ×3 (01:13→17:50)
[2019-12-24 03:33] VITALS: BP 132/96
[2019-12-24 06:49] LABS: BASOPHILS % (AUTO) 0.4 % (0.0-2.0); EOSINOPHILS % (AUTO) 0.1 % (1.0-6.0); HEMATOCRIT 39.2 % (36-46); LYMPHOCYTES # (AUTO) 1.3 K/uL (1.0-4.8); MEAN CORPUSCULAR HEMOGLOBIN 27.8 pg (26.0-34.0); MEAN CORPUSCULAR VOLUME 84 fL (80-100); MONOCYTES # (AUTO) 1.7 K/uL (0.1-1.0); MONOCYTES % (AUTO) 12.6 % (2.0-9.0); NEUTROPHILS # (AUTO) 10.3 K/uL (1.8-7.7); NEUTROPHILS % (AUTO) 76.9 % (40.0-70.0); PLATELET COUNT (AUTO) 216 K/uL (150-450); RED BLOOD CELL COUNT(AUTO) 4.67 MIL/uL (4.00-5.20); RED CELL DISTRIBUTION WIDTH 14.2 % (11.5-14.5)
[2019-12-24 07:23] LABS: PLATELET MORPHOLOGY COMMENT GIANT PLTS PRESENT
[2019-12-24 07:27] VITALS: BP 137/100
[2019-12-24 07:36] LABS: ALANINE AMINOTRANSFERASE 12 U/L (12-78); ALBUMIN 2.2 g/dL (3.4-5.0); ALKALINE PHOSPHATASE 68 U/L (46-116); ANION GAP 10 mmol/L (8-16); ASPARTATE AMINOTRANSFERASE 21 U/L (15-37); BILIRUBIN,TOTAL 0.3 mg/dL (0.1-1.0); C-REACTIVE PROTEIN QUANT 13.13 mg/dL (0.00-0.30); CALCIUM, TOTAL 8.6 mg/dL (8.8-10.5); CARBON DIOXIDE 24 mmol/L (22-29); CHLORIDE 100 mmol/L (98-107); CREATININE 0.96 mg/dL (0.60-1.30); FERRITIN 429 ng/mL (8-252); GLOMERULAR FILTR. RATE CALC > 60 mL/min (>60); GLUCOSE,RANDOM 101 mg/dL (70-110); POTASSIUM 3.6 mmol/L (3.5-5.1); SODIUM SERUM 134 mmol/L (136-145); UREA NITROGEN, BLOOD 15 mg/dL (7-18)
[2019-12-24] MEDS: HEPARIN SODIUM,PORCINE 5,000 UNITS/ML VIAL SQ SCH ×3 (08:43→23:17)
[2019-12-24] MEDS: ACETAMINOPHEN 325 MG TABLET PO PRN ×2 (08:52→16:54)
[2019-12-24 11:15] VITALS: BP 132/83
[2019-12-24] MEDS: REMDESIVIR **INVESTIGATIONAL** 100 MG in SODIUM CHLORIDE 0.9% 230 ML IV SCH (16:29)
[2019-12-24 18:17] VITALS: BP 140/74
[2019-12-24 21:15] VITALS: BP 117/67
[2019-12-24] MEDS: ACETAMINOPHEN 500 MG TABLET PO ONE (23:06)
[2019-12-24] MEDS: CefTRIAXone 1 GM/DEXTROSE 50 ML IV SCH (23:17)
[2019-12-25] VITALS (8 sets, daily range): BP systolic 118–155; BP diastolic 53–104
[2019-12-25] MEDS: MetroNIDAZOLE 500 MG/NACL 100 ML IV SCH ×3 (04:19→18:08)
[2019-12-25 07:50] LABS: BASOPHILS % (AUTO) 0.3 % (0.0-2.0); EOSINOPHILS % (AUTO) 0.3 % (1.0-6.0); HEMATOCRIT 37.4 % (36-46); HEMOGLOBIN 12.2 g/dL (12.0-16.0); LYMPHOCYTES # (AUTO) 1.7 K/uL (1.0-4.8); LYMPHOCYTES % (AUTO) 13.6 % (22.0-44.0); MEAN CORPUSCULAR HEMOGLOBIN 27.4 pg (26.0-34.0); MEAN CORPUSCULAR HGB CONC 32.6 G/dL (31.0-37.0); MEAN CORPUSCULAR VOLUME 84 fL (80-100); MONOCYTES # (AUTO) 1.6 K/uL (0.1-1.0); MONOCYTES % (AUTO) 13.1 % (2.0-9.0); NEUTROPHILS % (AUTO) 72.7 % (40.0-70.0); PLATELET COUNT (AUTO) 222 K/uL (150-450); RED BLOOD CELL COUNT(AUTO) 4.46 MIL/uL (4.00-5.20); RED CELL DISTRIBUTION WIDTH 13.9 % (11.5-14.5)
[2019-12-25 08:14] LABS: ALANINE AMINOTRANSFERASE 14 U/L (12-78); ALBUMIN 2.1 g/dL (3.4-5.0); ALKALINE PHOSPHATASE 66 U/L (46-116); ANION GAP 11 mmol/L (8-16); ASPARTATE AMINOTRANSFERASE 25 U/L (15-37); BILIRUBIN,TOTAL 0.3 mg/dL (0.1-1.0); C-REACTIVE PROTEIN QUANT 13.49 mg/dL (0.00-0.30); CALCIUM, TOTAL 8.5 mg/dL (8.8-10.5); CARBON DIOXIDE 24 mmol/L (22-29); CHLORIDE 102 mmol/L (98-107); CREATININE 0.94 mg/dL (0.60-1.30); FERRITIN 454 ng/mL (8-252); GLOMERULAR FILTR. RATE CALC > 60 mL/min (>60); GLUCOSE,RANDOM 127 mg/dL (70-110); POTASSIUM 3.3 mmol/L (3.5-5.1); SODIUM SERUM 137 mmol/L (136-145); TOTAL PROTEIN, SERUM 6.8 g/dL (6.4-8.2); UREA NITROGEN, BLOOD 12 mg/dL (7-18)
[2019-12-25] MEDS: HEPARIN SODIUM,PORCINE 5,000 UNITS/ML VIAL SQ SCH ×3 (08:41→23:53)
[2019-12-25] MEDS ORDERED: SODIUM CHLORIDE 0.9% 250 ML IV ONE (10:58)
[2019-12-25] MEDS: ACETAMINOPHEN 325 MG TABLET PO PRN ×2 (11:32→21:00)
[2019-12-25 13:11] LABS: GLUCOMETER DEV NAME(LOC) 5N.1; GLUCOSE,POINT OF CARE 112 MG/DL (70-110)
[2019-12-25] MEDS: REMDESIVIR **INVESTIGATIONAL** 100 MG in SODIUM CHLORIDE 0.9% 230 ML IV SCH (17:53)
[2019-12-25] MEDS ORDERED: POTASSIUM CHLORIDE 20 MEQ ER TABLET PO ONE (20:45)
[2019-12-25] MEDS: CefTRIAXone 1 GM/DEXTROSE 50 ML IV SCH (22:24)
[2019-12-26 00:16] VITALS: BP 153/98
[2019-12-26] MEDS: MetroNIDAZOLE 500 MG/NACL 100 ML IV SCH ×3 (02:38→17:33)
[2019-12-26 05:54] VITALS: BP 140/86
[2019-12-26 06:52] LABS: BASOPHILS % (AUTO) 0.2 % (0.0-2.0); EOSINOPHILS % (AUTO) 0.8 % (1.0-6.0); HEMATOCRIT 37.7 % (36-46); HEMOGLOBIN 12.5 g/dL (12.0-16.0); LYMPHOCYTES # (AUTO) 1.7 K/uL (1.0-4.8); LYMPHOCYTES % (AUTO) 13.2 % (22.0-44.0); MEAN CORPUSCULAR HEMOGLOBIN 27.7 pg (26.0-34.0); MEAN CORPUSCULAR HGB CONC 33.1 G/dL (31.0-37.0); MEAN CORPUSCULAR VOLUME 84 fL (80-100); MONOCYTES # (AUTO) 1.8 K/uL (0.1-1.0); MONOCYTES % (AUTO) 13.9 % (2.0-9.0); NEUTROPHILS # (AUTO) 9.1 K/uL (1.8-7.7); NEUTROPHILS % (AUTO) 71.9 % (40.0-70.0); PLATELET COUNT (AUTO) 217 K/uL (150-450); RED BLOOD CELL COUNT(AUTO) 4.51 MIL/uL (4.00-5.20); RED CELL DISTRIBUTION WIDTH 14.4 % (11.5-14.5)
[2019-12-26 07:18] LABS: ALANINE AMINOTRANSFERASE 19 U/L (12-78); ALBUMIN 2.1 g/dL (3.4-5.0); ALKALINE PHOSPHATASE 72 U/L (46-116); ANION GAP 8 mmol/L (8-16); ASPARTATE AMINOTRANSFERASE 34 U/L (15-37); BILIRUBIN,TOTAL 0.3 mg/dL (0.1-1.0); CALCIUM, TOTAL 8.7 mg/dL (8.8-10.5); CARBON DIOXIDE 26 mmol/L (22-29); CHLORIDE 103 mmol/L (98-107); CREATININE 0.88 mg/dL (0.60-1.30); GLOMERULAR FILTR. RATE CALC > 60 mL/min (>60); GLUCOSE,RANDOM 93 mg/dL (70-110); POTASSIUM 3.8 mmol/L (3.5-5.1); SODIUM SERUM 137 mmol/L (136-145); TOTAL PROTEIN, SERUM 7.1 g/dL (6.4-8.2); UREA NITROGEN, BLOOD 9 mg/dL (7-18)
[2019-12-26 08:00] LABS: C-REACTIVE PROTEIN QUANT 13.63 mg/dL (0.00-0.30); FERRITIN 481 ng/mL (8-252)
[2019-12-26 08:20] VITALS: BP 144/102
[2019-12-26] MEDS: FAMOTIDINE 20 MG TABLET PO SCH ×2 (08:46→20:45)
[2019-12-26] MEDS: HEPARIN SODIUM,PORCINE 5,000 UNITS/ML VIAL SQ SCH ×2 (08:46→17:26)
[2019-12-26] MEDS: DEXAMETHASONE SOD PHOS 10 MG/ML VIAL IVP SCH (08:47)
[2019-12-26] MEDS ORDERED: SODIUM CHLORIDE 0.9% 250 ML IV ONE (09:55)
[2019-12-26 11:26] VITALS: BP 141/90
[2019-12-26 15:35] VITALS: BP 143/88
[2019-12-26] MEDS: REMDESIVIR **INVESTIGATIONAL** 100 MG in SODIUM CHLORIDE 0.9% 230 ML IV SCH (17:26)
[2019-12-26 20:24] VITALS: BP 134/80
[2019-12-26] MEDS: CefTRIAXone 1 GM/DEXTROSE 50 ML IV SCH (22:50)
[2019-12-27 00:27] VITALS: BP 130/90
[2019-12-27] MEDS: HEPARIN SODIUM,PORCINE 5,000 UNITS/ML VIAL SQ SCH ×3 (00:45→18:15)
[2019-12-27] MEDS: MetroNIDAZOLE 500 MG/NACL 100 ML IV SCH ×3 (01:50→18:15)
[2019-12-27 07:08] LABS: BASOPHILS % (AUTO) 0.3 % (0.0-2.0); EOSINOPHILS % (AUTO) 0 % (1.0-6.0); HEMATOCRIT 36.9 % (36-46); HEMOGLOBIN 12.2 g/dL (12.0-16.0); LYMPHOCYTES # (AUTO) 1.2 K/uL (1.0-4.8); LYMPHOCYTES % (AUTO) 5.9 % (22.0-44.0); MEAN CORPUSCULAR HEMOGLOBIN 27.6 pg (26.0-34.0); MEAN CORPUSCULAR HGB CONC 33.2 G/dL (31.0-37.0); MEAN CORPUSCULAR VOLUME 83 fL (80-100); MONOCYTES # (AUTO) 2.1 K/uL (0.1-1.0); MONOCYTES % (AUTO) 10.6 % (2.0-9.0); NEUTROPHILS # (AUTO) 16.6 K/uL (1.8-7.7); NEUTROPHILS % (AUTO) 83.2 % (40.0-70.0); PLATELET COUNT (AUTO) 244 K/uL (150-450); RED BLOOD CELL COUNT(AUTO) 4.43 MIL/uL (4.00-5.20); RED CELL DISTRIBUTION WIDTH 14.3 % (11.5-14.5)
[2019-12-27 07:39] LABS: ALANINE AMINOTRANSFERASE 17 U/L (12-78); ALBUMIN 2.2 g/dL (3.4-5.0); ALKALINE PHOSPHATASE 80 U/L (46-116); ANION GAP 8 mmol/L (8-16); ASPARTATE AMINOTRANSFERASE 20 U/L (15-37); BILIRUBIN,TOTAL 0.2 mg/dL (0.1-1.0); C-REACTIVE PROTEIN QUANT 11.14 mg/dL (0.00-0.30); CALCIUM, TOTAL 9.1 mg/dL (8.8-10.5); CARBON DIOXIDE 27 mmol/L (22-29); CHLORIDE 102 mmol/L (98-107); CREATININE 0.91 mg/dL (0.60-1.30); FERRITIN 350 ng/mL (8-252); GLOMERULAR FILTR. RATE CALC > 60 mL/min (>60); GLUCOSE,RANDOM 131 mg/dL (70-110); SODIUM SERUM 137 mmol/L (136-145); TOTAL PROTEIN, SERUM 7.4 g/dL (6.4-8.2); UREA NITROGEN, BLOOD 19 mg/dL (7-18)
[2019-12-27 08:29] VITALS: BP 123/88
[2019-12-27] MEDS: DEXAMETHASONE SOD PHOS 10 MG/ML VIAL IVP SCH (10:21)
[2019-12-27] MEDS: FAMOTIDINE 20 MG TABLET PO SCH ×2 (10:22→21:03)
[2019-12-27 11:25] VITALS: BP 130/90
[2019-12-27 15:03] VITALS: BP 140/72
[2019-12-27] MEDS ORDERED: FLUoxetine HCL 10 MG CAPSULE PO SCH (15:15)
[2019-12-27] MEDS ORDERED: SODIUM CHLORIDE 0.9% 250 ML IV ONE (18:01)
[2019-12-27 19:33] VITALS: BP 142/83
[2019-12-27] MEDS: QUEtiapine FUMARATE 100 MG TABLET PO SCH (21:03)
[2019-12-27] MEDS: CefTRIAXone 1 GM/DEXTROSE 50 ML IV SCH (21:44)
[2019-12-27] MEDS ORDERED: HEPARIN SODIUM,PORCINE 5,000 UNITS/ML VIAL IVP PRN (23:00)
[2019-12-28 00:16] VITALS: BP 99/56
[2019-12-28 00:18] LABS: BASOPHILS % (AUTO) 0.8 % (0.0-2.0); EOSINOPHILS % (AUTO) 0 % (1.0-6.0); HEMATOCRIT 35.6 % (36-46); HEMOGLOBIN 11.5 g/dL (12.0-16.0); LYMPHOCYTES # (AUTO) 1.1 K/uL (1.0-4.8); LYMPHOCYTES % (AUTO) 5.8 % (22.0-44.0); MEAN CORPUSCULAR HGB CONC 32.2 G/dL (31.0-37.0); MEAN CORPUSCULAR VOLUME 84 fL (80-100); MONOCYTES # (AUTO) 1.2 K/uL (0.1-1.0); MONOCYTES % (AUTO) 6.5 % (2.0-9.0); PLATELET COUNT (AUTO) 258 K/uL (150-450); RED BLOOD CELL COUNT(AUTO) 4.26 MIL/uL (4.00-5.20); RED CELL DISTRIBUTION WIDTH 14.4 % (11.5-14.5)
[2019-12-28 00:20] LABS: NEUTROPHILS % (AUTO) 86.9 % (40.0-70.0)
[2019-12-28 00:35] LABS: INR 1.1 (0.9-1.1); PROTHROMBIN TIME 11.9 SEC (9.4-11.6)
[2019-12-28] MEDS: MetroNIDAZOLE 500 MG/NACL 100 ML IV SCH ×3 (01:50→18:41)
[2019-12-28] MEDS: HEPARIN SODIUM,PORCINE 5,000 UNITS/ML VIAL IVP PRN (02:34)
[2019-12-28] MEDS: HEPARIN SODIUM 25000 UNITS/D5W 250 ML IV PRN (02:36)
[2019-12-28 05:03] VITALS: BP 133/78
[2019-12-28 07:50] LABS: BASOPHILS % (AUTO) 0.2 % (0.0-2.0); EOSINOPHILS % (AUTO) 0 % (1.0-6.0); HEMATOCRIT 34.9 % (36-46); HEMOGLOBIN 11.4 g/dL (12.0-16.0); LYMPHOCYTES # (AUTO) 1.5 K/uL (1.0-4.8); MEAN CORPUSCULAR HEMOGLOBIN 27.5 pg (26.0-34.0); MEAN CORPUSCULAR HGB CONC 32.8 G/dL (31.0-37.0); MEAN CORPUSCULAR VOLUME 84 fL (80-100); MONOCYTES # (AUTO) 1.3 K/uL (0.1-1.0); MONOCYTES % (AUTO) 6.9 % (2.0-9.0); NEUTROPHILS # (AUTO) 16.2 K/uL (1.8-7.7); NEUTROPHILS % (AUTO) 84.9 % (40.0-70.0); PLATELET COUNT (AUTO) 273 K/uL (150-450); RED BLOOD CELL COUNT(AUTO) 4.16 MIL/uL (4.00-5.20); RED CELL DISTRIBUTION WIDTH 14.6 % (11.5-14.5)
[2019-12-28 07:51] VITALS: BP 148/80
[2019-12-28] MEDS: FAMOTIDINE 20 MG TABLET PO SCH ×2 (09:34→21:53)
[2019-12-28] MEDS: DULoxetine HCL 20 MG CAPSULE PO SCH (09:34)
[2019-12-28] MEDS: DEXAMETHASONE SOD PHOS 10 MG/ML VIAL IVP SCH (09:34)
[2019-12-28 12:06] VITALS: BP 157/89
[2019-12-28 16:52] VITALS: BP 139/86
[2019-12-28] MEDS: CefTRIAXone 1 GM/DEXTROSE 50 ML IV SCH (21:53)
[2019-12-28] MEDS: QUEtiapine FUMARATE 100 MG TABLET PO SCH (21:53)
[2019-12-29] MEDS: MetroNIDAZOLE 500 MG/NACL 100 ML IV SCH ×3 (01:05→17:46)
[2019-12-29] MEDS: HEPARIN SODIUM 25000 UNITS/D5W 250 ML IV PRN (01:07)
[2019-12-29 05:54] VITALS: BP 130/75
[2019-12-29 07:59] VITALS: BP 147/96
[2019-12-29] MEDS: FAMOTIDINE 20 MG TABLET PO SCH ×2 (08:46→21:07)
[2019-12-29] MEDS: DEXAMETHASONE SOD PHOS 10 MG/ML VIAL IVP SCH (08:46)
[2019-12-29] MEDS: DULoxetine HCL 20 MG CAPSULE PO SCH ×2 (08:46→09:00)
[2019-12-29 10:55] VITALS: BP 140/82
[2019-12-29] MEDS: FLUoxetine HCL 20 MG CAPSULE PO SCH (11:49)
[2019-12-29 15:01] VITALS: BP 146/72
[2019-12-29] MEDS ORDERED: SODIUM CHLORIDE 0.9% 250 ML IV ONE (18:39)
[2019-12-29 20:59] VITALS: BP 125/92
[2019-12-29] MEDS: QUEtiapine FUMARATE 100 MG TABLET PO SCH (21:07)
[2019-12-29] MEDS: CefTRIAXone 1 GM/DEXTROSE 50 ML IV SCH (21:24)
[2019-12-30] MEDS: MetroNIDAZOLE 500 MG/NACL 100 ML IV SCH ×3 (02:11→17:47)
[2019-12-30] MEDS: HEPARIN SODIUM 25000 UNITS/D5W 250 ML IV PRN (04:13)
[2019-12-30 05:58] VITALS: BP 128/77
[2019-12-30 06:47] LABS: D-DIMER 4.98 mg/L FEU (0.00-0.50)
[2019-12-30 07:55] VITALS: BP 131/88
[2019-12-30 08:16] LABS: ALANINE AMINOTRANSFERASE 20 U/L (12-78); ALBUMIN 2.3 g/dL (3.4-5.0); ALKALINE PHOSPHATASE 91 U/L (46-116); ANION GAP 9 mmol/L (8-16); ASPARTATE AMINOTRANSFERASE 20 U/L (15-37); BILIRUBIN,TOTAL 0.2 mg/dL (0.1-1.0); C-REACTIVE PROTEIN QUANT 1.83 mg/dL (0.00-0.30); CALCIUM, TOTAL 9.1 mg/dL (8.8-10.5); CARBON DIOXIDE 27 mmol/L (22-29); CHLORIDE 105 mmol/L (98-107); CREATININE 0.97 mg/dL (0.60-1.30); FERRITIN 377 ng/mL (8-252); GLOMERULAR FILTR. RATE CALC > 60 mL/min (>60); GLUCOSE,RANDOM 107 mg/dL (70-110); POTASSIUM 4.9 mmol/L (3.5-5.1); SODIUM SERUM 141 mmol/L (136-145); TOTAL PROTEIN, SERUM 7.1 g/dL (6.4-8.2); UREA NITROGEN, BLOOD 20 mg/dL (7-18)
[2019-12-30] MEDS ORDERED: FLUoxetine HCL 20 MG CAPSULE PO SCH (09:00)
[2019-12-30] MEDS: DEXAMETHASONE SOD PHOS 10 MG/ML VIAL IVP SCH (09:33)
[2019-12-30] MEDS: FLUoxetine HCL 20 MG CAPSULE PO SCH (09:33)
[2019-12-30] MEDS: FAMOTIDINE 20 MG TABLET PO SCH ×2 (09:33→21:10)
[2019-12-30 12:10] VITALS: BP 142/86
[2019-12-30 16:20] VITALS: BP 141/87
[2019-12-30 20:25] VITALS: BP 148/95
[2019-12-30] MEDS: QUEtiapine FUMARATE 100 MG TABLET PO SCH (21:10)
[2019-12-30] MEDS: CefTRIAXone 1 GM/DEXTROSE 50 ML IV SCH (21:21)
[2019-12-31 00:24] VITALS: BP 122/74
[2019-12-31] MEDS: MetroNIDAZOLE 500 MG/NACL 100 ML IV SCH ×3 (03:08→18:38)
[2019-12-31 05:48] VITALS: BP 148/94
[2019-12-31 07:14] LABS: BASOPHILS % (AUTO) 0.2 % (0.0-2.0); EOSINOPHILS % (AUTO) 0.2 % (1.0-6.0); HEMATOCRIT 36.5 % (36-46); HEMOGLOBIN 11.9 g/dL (12.0-16.0); LYMPHOCYTES # (AUTO) 2.4 K/uL (1.0-4.8); LYMPHOCYTES % (AUTO) 10.8 % (22.0-44.0); MEAN CORPUSCULAR HEMOGLOBIN 27.7 pg (26.0-34.0); MEAN CORPUSCULAR HGB CONC 32.7 G/dL (31.0-37.0); MEAN CORPUSCULAR VOLUME 85 fL (80-100); MONOCYTES # (AUTO) 1.9 K/uL (0.1-1.0); MONOCYTES % (AUTO) 8.6 % (2.0-9.0); NEUTROPHILS # (AUTO) 17.9 K/uL (1.8-7.7); NEUTROPHILS % (AUTO) 80.2 % (40.0-70.0); PLATELET COUNT (AUTO) 313 K/uL (150-450); RED CELL DISTRIBUTION WIDTH 14.5 % (11.5-14.5)
[2019-12-31 07:44] LABS: D-DIMER 4.78 mg/L FEU (0.00-0.50)
[2019-12-31 07:48] VITALS: BP 168/90
[2019-12-31 07:54] LABS: ANION GAP 5 mmol/L (8-16); CALCIUM, TOTAL 9.2 mg/dL (8.8-10.5); CARBON DIOXIDE 31 mmol/L (22-29); CHLORIDE 104 mmol/L (98-107); CREATININE 0.92 mg/dL (0.60-1.30); FERRITIN 438 ng/mL (8-252); GLOMERULAR FILTR. RATE CALC > 60 mL/min (>60); GLUCOSE,RANDOM 102 mg/dL (70-110); POTASSIUM 4.6 mmol/L (3.5-5.1); SODIUM SERUM 140 mmol/L (136-145); UREA NITROGEN, BLOOD 22 mg/dL (7-18)
[2019-12-31] MEDS: DEXAMETHASONE SOD PHOS 10 MG/ML VIAL IVP SCH (09:20)
[2019-12-31] MEDS: FLUoxetine HCL 20 MG CAPSULE PO SCH (09:20)
[2019-12-31] MEDS: FAMOTIDINE 20 MG TABLET PO SCH ×2 (09:20→21:45)
[2019-12-31] MEDS: HEPARIN SODIUM,PORCINE 5,000 UNITS/ML VIAL IVP PRN (10:33)
[2019-12-31] MEDS: HEPARIN SODIUM 25000 UNITS/D5W 250 ML IV PRN (10:42)
[2019-12-31 11:20] VITALS: BP 135/82
[2019-12-31 16:11] VITALS: BP 130/78
[2019-12-31 20:59] VITALS: BP 164/88
[2019-12-31] MEDS: QUEtiapine FUMARATE 100 MG TABLET PO SCH (21:45)
[2019-12-31] MEDS: CefTRIAXone 1 GM/DEXTROSE 50 ML IV SCH (21:46)
[2020-01-01 01:31] VITALS: BP 154/64
[2020-01-01] MEDS: MetroNIDAZOLE 500 MG/NACL 100 ML IV SCH ×2 (03:20→08:55)
[2020-01-01 04:27] VITALS: BP 152/92
[2020-01-01 08:16] LABS: D-DIMER 4.42 mg/L FEU (0.00-0.50)
[2020-01-01 08:22] LABS: ALANINE AMINOTRANSFERASE 44 U/L (12-78); ALBUMIN 2.4 g/dL (3.4-5.0); ALKALINE PHOSPHATASE 101 U/L (46-116); ANION GAP 5 mmol/L (8-16); ASPARTATE AMINOTRANSFERASE 25 U/L (15-37); BILIRUBIN,TOTAL 0.2 mg/dL (0.1-1.0); C-REACTIVE PROTEIN QUANT 0.61 mg/dL (0.00-0.30); CALCIUM, TOTAL 9.2 mg/dL (8.8-10.5); CARBON DIOXIDE 30 mmol/L (22-29); CHLORIDE 105 mmol/L (98-107); CREATININE 0.84 mg/dL (0.60-1.30); FERRITIN 430 ng/mL (8-252); GLOMERULAR FILTR. RATE CALC > 60 mL/min (>60); GLUCOSE,RANDOM 93 mg/dL (70-110); POTASSIUM 4.9 mmol/L (3.5-5.1); SODIUM SERUM 140 mmol/L (136-145); TOTAL PROTEIN, SERUM 6.9 g/dL (6.4-8.2); UREA NITROGEN, BLOOD 20 mg/dL (7-18)
[2020-01-01] MEDS: FAMOTIDINE 20 MG TABLET PO SCH ×2 (08:54→20:23)
[2020-01-01] MEDS: FLUoxetine HCL 20 MG CAPSULE PO SCH (08:54)
[2020-01-01] MEDS: DEXAMETHASONE SOD PHOS 10 MG/ML VIAL IVP SCH (08:54)
[2020-01-01] MEDS: HEPARIN SODIUM 25000 UNITS/D5W 250 ML IV PRN (10:38)
[2020-01-01 11:56] VITALS: BP 131/79
[2020-01-01 16:21] VITALS: BP 150/90
[2020-01-01 20:16] VITALS: BP 130/51
[2020-01-01] MEDS: QUEtiapine FUMARATE 100 MG TABLET PO SCH (20:23)
[2020-01-01 23:46] VITALS: BP 136/77
[2020-01-02 05:57] VITALS: BP 142/84
[2020-01-02 07:31] LABS: ALANINE AMINOTRANSFERASE 46 U/L (12-78); ALBUMIN 2.4 g/dL (3.4-5.0); ALKALINE PHOSPHATASE 95 U/L (46-116); ANION GAP 7 mmol/L (8-16); ASPARTATE AMINOTRANSFERASE 21 U/L (15-37); BILIRUBIN,TOTAL 0.2 mg/dL (0.1-1.0); C-REACTIVE PROTEIN QUANT 0.37 mg/dL (0.00-0.30); CALCIUM, TOTAL 8.9 mg/dL (8.8-10.5); CARBON DIOXIDE 30 mmol/L (22-29); CHLORIDE 104 mmol/L (98-107); FERRITIN 359 ng/mL (8-252); GLOMERULAR FILTR. RATE CALC > 60 mL/min (>60); GLUCOSE,RANDOM 146 mg/dL (70-110); POTASSIUM 4.1 mmol/L (3.5-5.1); SODIUM SERUM 141 mmol/L (136-145); TOTAL PROTEIN, SERUM 6.6 g/dL (6.4-8.2); UREA NITROGEN, BLOOD 24 mg/dL (7-18)
[2020-01-02 08:29] VITALS: BP 144/91
[2020-01-02] MEDS: DEXAMETHASONE SOD PHOS 10 MG/ML VIAL IVP SCH (08:46)
[2020-01-02] MEDS: FAMOTIDINE 20 MG TABLET PO SCH ×2 (08:46→20:40)
[2020-01-02] MEDS: FLUoxetine HCL 20 MG CAPSULE PO SCH (08:47)
[2020-01-02] MEDS: HEPARIN SODIUM 25000 UNITS/D5W 250 ML IV PRN (10:31)
[2020-01-02 12:00] VITALS: BP 137/56
[2020-01-02 20:26] VITALS: BP 150/93
[2020-01-02] MEDS: QUEtiapine FUMARATE 100 MG TABLET PO SCH (20:41)
[2020-01-03 00:26] VITALS: BP 133/65
[2020-01-03 04:54] VITALS: BP 144/95
[2020-01-03 07:27] LABS: BASOPHILS % (AUTO) 0.6 % (0.0-2.0); EOSINOPHILS % (AUTO) 1.2 % (1.0-6.0); HEMATOCRIT 37.2 % (36-46); HEMOGLOBIN 11.7 g/dL (12.0-16.0); LYMPHOCYTES # (AUTO) 2.9 K/uL (1.0-4.8); LYMPHOCYTES % (AUTO) 14.3 % (22.0-44.0); MEAN CORPUSCULAR HEMOGLOBIN 27.3 pg (26.0-34.0); MEAN CORPUSCULAR HGB CONC 31.6 G/dL (31.0-37.0); MEAN CORPUSCULAR VOLUME 86 fL (80-100); MONOCYTES # (AUTO) 1.7 K/uL (0.1-1.0); MONOCYTES % (AUTO) 8.7 % (2.0-9.0); NEUTROPHILS % (AUTO) 75.2 % (40.0-70.0); PLATELET COUNT (AUTO) 288 K/uL (150-450); RED CELL DISTRIBUTION WIDTH 15.2 % (11.5-14.5)
[2020-01-03 08:32] VITALS: BP 144/94
[2020-01-03] MEDS: FAMOTIDINE 20 MG TABLET PO SCH ×2 (09:30→20:34)
[2020-01-03] MEDS: DEXAMETHASONE SOD PHOS 10 MG/ML VIAL IVP SCH (09:30)
[2020-01-03] MEDS: FLUoxetine HCL 20 MG CAPSULE PO SCH (09:30)
[2020-01-03 11:15] VITALS: BP 145/93
[2020-01-03 15:57] VITALS: BP 133/77
[2020-01-03] MEDS: QUEtiapine FUMARATE 100 MG TABLET PO SCH (20:34)
[2020-01-03 21:16] VITALS: BP 128/77
[2020-01-04 00:21] VITALS: BP 140/87
[2020-01-04 05:26] VITALS: BP 130/80
[2020-01-04 07:33] VITALS: BP 145/90
[2020-01-04] MEDS: FAMOTIDINE 20 MG TABLET PO SCH (08:57)
[2020-01-04] MEDS: DEXAMETHASONE SOD PHOS 10 MG/ML VIAL IVP SCH (08:58)
[2020-01-04] MEDS: FLUoxetine HCL 20 MG CAPSULE PO SCH (08:58)
[2020-01-04 11:07] VITALS: BP 120/83
[2020-01-04] MEDS ORDERED: FAMO-135 PO (13:00)
[2020-01-04] MEDS ORDERED: FLUO-191 PO (13:01)
[2020-01-04] MEDS ORDERED: QUET100T PO (13:02)
[2020-01-04] MEDS ORDERED: APIX5TAB PO (13:06)
[2020-01-04 15:35] VITALS: BP 124/78
== END 2020-01-04 16:10 | disposition home or self-care (01) | DRG 720 ==
LOC: EMS 13:28 → 5N 21:50 → 6N 12-21 18:15 → 5N 12-22 15:30
PROVIDERS: ADMIT Hospitalist; ATTEND Hospitalist
PROC: 30233K1 Transfusion of Nonautologous Frozen Plasma into Peripheral Vein, Percutaneous Approach (ICD-10-PCS; principal; 2019-12-25)
DX: A41.89 Other specified sepsis (principal); U07.1 COVID-19; J96.01 Acute respiratory failure with hypoxia; J12.89 Other viral pneumonia; R65.20 Severe sepsis without septic shock; D68.69 Other thrombophilia; E87.6 Hypokalemia; F17.210 Nicotine dependence, cigarettes, uncomplicated; N39.0 Urinary tract infection, site not specified; I10 Essential (primary) hypertension; F33.3 Major depressive disorder, recurrent, severe with psychotic symptoms; E66.9 Obesity, unspecified
CPT/HCPCS: 71260; 72193; 74160; 82271; 82728; 83605; 83615; 84145; 85379; 86140; 86850; 86880; 86900; 86901; 86927; 87040; 87086; 93005; 93306; J0696; J1100; J1644; J2405; J3490; J7030; J7050; J7060; 36415-L1; 36415-TC; 71045-TC; 87635; U0003-CS

== ENCOUNTER 2021-03-08 17:36 | Emergency (ER) | payer MEDICARE, OTHER ==
[~2021-03-08] VITALS: Ht 165.1 cm; Wt 109.1 kg
[~2021-03-08 17:36] MED LIST changes: -AMLO-257 PO; +APIX5TAB PO; -ASPI-1522 PO; -CIPR-279 PO; +FAMO-290 PO; +FLUO-191 PO; -METR500 PO; +QUET100T PO
[2021-03-08 19:04] LABS: BASOPHILS % (AUTO) 0.5 % (0.0-2.0); EOSINOPHILS % (AUTO) 3.8 % (1.0-6.0); HEMATOCRIT 41.1 % (36-46); HEMOGLOBIN 13.3 g/dL (12.0-16.0); LYMPHOCYTES # (AUTO) 2.6 K/uL (1.0-4.8); LYMPHOCYTES % (AUTO) 33.8 % (22.0-44.0); MEAN CORPUSCULAR HEMOGLOBIN 27.6 pg (26.0-34.0); MEAN CORPUSCULAR HGB CONC 32.5 G/dL (31.0-37.0); MEAN CORPUSCULAR VOLUME 85 fL (80-100); MONOCYTES # (AUTO) 1.1 K/uL (0.1-1.0); MONOCYTES % (AUTO) 14.1 % (2.0-9.0); NEUTROPHILS # (AUTO) 3.6 K/uL (1.8-7.7); NEUTROPHILS % (AUTO) 47.8 % (40.0-70.0); PLATELET COUNT (AUTO) 203 K/uL (150-450); RED BLOOD CELL COUNT(AUTO) 4.82 MIL/uL (4.00-5.20); RED CELL DISTRIBUTION WIDTH 14.6 % (11.5-14.5)
[2021-03-08 19:15] LABS: ANION GAP 7 mmol/L (8-16); CALCIUM, TOTAL 9.5 mg/dL (8.8-10.5); CARBON DIOXIDE 31 mmol/L (22-29); CHLORIDE 105 mmol/L (98-107); CREATININE 0.91 mg/dL (0.60-1.30); GLOMERULAR FILTR. RATE CALC > 60 mL/min (>60); GLUCOSE,RANDOM 94 mg/dL (70-110); POTASSIUM 3.4 mmol/L (3.5-5.1); SODIUM SERUM 143 mmol/L (136-145); UREA NITROGEN, BLOOD 17 mg/dL (7-18)
[2021-03-08 19:15] LABS: COVID AG,FIA SOURCE NASOPHARYNGEAL
[2021-03-08 19:21] LABS: ALANINE AMINOTRANSFERASE 25 U/L (12-78); ALBUMIN 3.3 g/dL (3.4-5.0); ALKALINE PHOSPHATASE 104 U/L (46-116); ASPARTATE AMINOTRANSFERASE 16 U/L (15-37); BILIRUBIN,TOTAL 0.3 mg/dL (0.1-1.0); TOTAL PROTEIN, SERUM 7.3 g/dL (6.4-8.2)
[2021-03-08 19:32] LABS: B-TYPE NATRIURETIC PEPTIDE 19 pg/mL (0-100)
[2021-03-08] MEDS ORDERED: SODIUM CHLORIDE 0.9% 100 ML ONE (19:40)
[2021-03-08] MEDS ORDERED: IOHEXOL 350 MG/ML 100 ML VIAL ONE (19:40)
[2021-03-08 22:16] VITALS: BP 157/95
== END 2021-03-08 22:30 | disposition home or self-care (01) ==
LOC: EMS 17:38
DX: J42 Unspecified chronic bronchitis (principal); F17.210 Nicotine dependence, cigarettes, uncomplicated; F32.9 Major depressive disorder, single episode, unspecified; I10 Essential (primary) hypertension; Z20.822 Contact with and (suspected) exposure to COVID-19
CPT/HCPCS: 36415; 70491; 71045; 71275; 80053; 83880; 84484; 85025; 85379; 87040; 87426; 93005; 99285; J7050; Q9967

== ENCOUNTER 2021-04-18 07:27 | Emergency (ER) | payer MEDICARE, OTHER ==
[~2021-04-18] VITALS: Ht 165.1 cm; Wt 113.6 kg
[2021-04-18] MEDS ORDERED: DOXYCYCLINE HYCLATE 100 MG TABLET PO ONE (08:45)
[2021-04-18 08:56] VITALS: BP 154/100
== END 2021-04-18 09:55 | disposition home or self-care (01) ==
LOC: EMS 07:27
DX: L03.113 Cellulitis of right upper limb (principal); J45.909 Unspecified asthma, uncomplicated; F32.A Depression, unspecified; I10 Essential (primary) hypertension; D25.9 Leiomyoma of uterus, unspecified; F17.210 Nicotine dependence, cigarettes, uncomplicated
CPT/HCPCS: 99283

== ENCOUNTER 2021-05-21 04:13 | Emergency (ER) | payer MEDICARE, OTHER ==
[~2021-05-21] VITALS: Ht 165.1 cm; Wt 134.7 kg
[2021-05-21] MEDS ORDERED: ASPIRIN 81 MG CHEWABLE TABLET PO ONE (04:45)
[2021-05-21] MEDS ORDERED: NITROGLYCERIN 2% (1 GM=INCH) PACKET TP ONE (04:45)
[2021-05-21 04:56] LABS: BASOPHILS % (AUTO) 0.7 % (0.0-2.0); EOSINOPHILS % (AUTO) 1.7 % (1.0-6.0); HEMATOCRIT 39.9 % (36-46); HEMOGLOBIN 12.9 g/dL (12.0-16.0); LYMPHOCYTES # (AUTO) 3.1 K/uL (1.0-4.8); LYMPHOCYTES % (AUTO) 26.4 % (22.0-44.0); MEAN CORPUSCULAR HEMOGLOBIN 27.6 pg (26.0-34.0); MEAN CORPUSCULAR HGB CONC 32.5 G/dL (31.0-37.0); MEAN CORPUSCULAR VOLUME 85 fL (80-100); MONOCYTES # (AUTO) 1.2 K/uL (0.1-1.0); MONOCYTES % (AUTO) 10.3 % (2.0-9.0); NEUTROPHILS # (AUTO) 7.2 K/uL (1.8-7.7); NEUTROPHILS % (AUTO) 60.9 % (40.0-70.0); PLATELET COUNT (AUTO) 172 K/uL (150-450); RED BLOOD CELL COUNT(AUTO) 4.68 MIL/uL (4.00-5.20); RED CELL DISTRIBUTION WIDTH 14.2 % (11.5-14.5)
[2021-05-21 05:03] LABS: COVID AG,FIA SOURCE NASOPHARYNGEAL
[2021-05-21 05:06] LABS: CALCIUM, TOTAL 9.2 mg/dL (8.8-10.5); CREATININE 1.2 mg/dL (0.60-1.30); POTASSIUM 3.1 mmol/L (3.5-5.1)
[2021-05-21 05:13] LABS: ALBUMIN 3.4 g/dL (3.4-5.0); BILIRUBIN,TOTAL 0.3 mg/dL (0.1-1.0); TOTAL PROTEIN, SERUM 7.1 g/dL (6.4-8.2)
[2021-05-21] MEDS ORDERED: MORPHINE SULFATE 4 MG/ML SYRINGE IVP ONE (05:30)
[2021-05-21] MEDS ORDERED: POTASSIUM CHLORIDE 20 MEQ ER TABLET PO ONE (05:30)
[2021-05-21] MEDS ORDERED: KETOROLAC TROMETHAMINE 30 MG/ML VIAL IVP ONE (05:30)
[2021-05-21] MEDS ORDERED: ONDANSETRON HCL 4 MG/2 ML VIAL IVP ONE (05:30)
[2021-05-21 06:44] LABS: APPEARANCE,URINE CLEAR (CLEAR); BILIRUBIN,URINE NEGATIVE (NEGATIVE); GLUCOSE, URINE (UA) NEGATIVE (NEGATIVE); KETONES,URINE NEGATIVE (NEGATIVE); LEUKOCYTE ESTERASE ,URINE SMALL (NEGATIVE); NITRATE,URINE NEGATIVE (NEGATIVE); OCCULT BLOOD,URINE LARGE (NEGATIVE); PH,URINE 6.5 (5.0-8.0); PROTEIN,URINE POS 1+ (NEGATIVE); UROBILINOGEN,URINE 0.2 mg/dL (<=1.0)
[2021-05-21 06:47] LABS: AMPHET/METH SCREEN,URINE POSITIVE (NEGATIVE); BARBITURATE SCREEN, URINE NEGATIVE (NEGATIVE); BENZODIAZEPINES SCREEN,URINE NEGATIVE (NEGATIVE); CANNABINOID SCREEN,URINE POSITIVE (NEGATIVE); COCAINE SCREEN,URINE NEGATIVE (NEGATIVE); METHADONE SCREEN, URINE NEGATIVE (NEGATIVE); OPIATE SCREEN,URINE NEGATIVE (NEGATIVE)
[2021-05-21 06:54] LABS: PHENCYCLIDINE SCREEN,URINE NEGATIVE (NEGATIVE)
[2021-05-21 06:55] LABS: BACTERIA,URINE Few /HPF (None Seen); RBC,URINE 26-50 /HPF (0-2); SQUAMOUS EPITHELIAL CELL,UR Few /LPF (None Seen)
[2021-05-21 09:30] VITALS: BP 144/65
== END 2021-05-21 11:15 | disposition home or self-care (01) ==
LOC: EMS 04:15
DX: R07.9 Chest pain, unspecified (principal); N39.0 Urinary tract infection, site not specified; I10 Essential (primary) hypertension; F17.210 Nicotine dependence, cigarettes, uncomplicated; D25.9 Leiomyoma of uterus, unspecified; Z20.822 Contact with and (suspected) exposure to COVID-19
CPT/HCPCS: 36415; 71045; 80053; 80307; 81001; 84484; 85025; 87086; 87426; 93005; 96374; 96375; 99285; G0480; J1885; J2405